=== PATIENT | female | born 1995 | race African-American/Black ===

== ENCOUNTER 2019-03-16 10:18 | Emergency (ER) | payer MEDICAID ==
[~2019-03-16] VITALS: Ht 149.9 cm; Wt 49.2 kg
--- NOTE | 2019-03-16 11:48 | NUR ---
[employer] INSPECTOR: Patient to room from lobby at this time with steady gait, in no acute distress.
[2019-03-16 11:57] VITALS: BP 121/65
--- NOTE | 2019-03-16 12:15 | NUR ---
pt to ed for right breast pain and lump x2 years. pt denies other s/s. ppt connected to moniot[facility]. vss. Dr. Wiley to bs for assessment. awatiing orders. Dr. Wiley aware of suicide assessment score. per Dr. Wiley, no 1:1 superviosion, no 15 minute checks and no telepsych.
== END 2019-03-16 12:41 | disposition home or self-care (01) ==
LOC: ED 12:34
DX: N63.0 Unspecified lump in unspecified breast (principal)
CPT/HCPCS: 99281